=== PATIENT | female | born 1995 | race Caucasian/White ===

== ENCOUNTER 2020-04-22 06:03 | Inpatient (IN) | payer BC, MEDICAID ==
[~2020-04-22] VITALS: Ht 160 cm; Wt 109.1 kg
[2020-04-22] VITALS (19 sets, daily range): BP systolic 100–141; BP diastolic 48–89
[2020-04-22 06:45] LABS: BASOPHILS % (AUTO) 0.7 % (0-1); EOSINOPHILS # (AUTO) 0.1 X10'3 (0-0.9); EOSINOPHILS % (AUTO) 1.5 % (0-6); HEMATOCRIT 38.5 % (35.0-45.0); HEMOGLOBIN 12.5 g/dl (12.0-16.0); LYMPHOCYTES # (AUTO) 1.4 X10'3 (1.1-4.8); LYMPHOCYTES % (AUTO) 31.1 % (21-51); MEAN CORPUSCULAR HEMOGLOBIN 25.6 PG (27.0-31.0); MEAN CORPUSCULAR HGB CONC 32.5 g/dL (33.0-36.5); MEAN CORPUSCULAR VOLUME 78.9 FL (78-98); MEAN PLATELET VOLUME 8.3 FL (7.4-10.4); MONOCYTES # (AUTO) 0.3 X10'3 (0-0.9); MONOCYTES % (AUTO) 6.7 % (2-12); NEUTROPHILS # (AUTO) 2.8 X10'3 (1.8-7.7); PLATELET COUNT 451 X10'3 (140-440); RED BLOOD COUNT 4.88 X10'6 (4.20-5.60); RED CELL DISTRIBUTION WIDTH 16.5 % (11.5-14.5); WHITE BLOOD COUNT 4.6 X10'3 (4.5-11.0)
[2020-04-22 06:59] LABS: ALANINE AMINOTRANSFERASE 557 U/L (12-78); ALBUMIN 3.7 G/DL (3.4-5.0); ALBUMIN/GLOBULIN RATIO 0.8 (1.1-1.5); ALKALINE PHOSPHATASE 303 IU/L (46-116); ANION GAP 10 (8-16); ASPARTATE AMINO TRANSFERASE 316 U/L (10-37); BILIRUBIN,TOTAL 3.3 MG/DL (0.1-1.0); BLOOD UREA NITROGEN 5 MG/DL (7-18); BUN/CREATININE RATIO 7.7 (6.6-38.0); CALCIUM 9.1 MG/DL (8.5-10.1); CHLORIDE 105 MMOL/L (99-107); CREATININE 0.65 MG/DL (0.40-0.90); GLUCOSE 97 MG/DL (70-104); LIPASE 80 U/L (73-393); PARTIAL THROMBOPLASTIN TIME 26 SECONDS (22-32); POTASSIUM 3.8 MMOL/L (3.5-5.1); SODIUM 141 MMOL/L (135-145); TOTAL CARBON DIOXIDE 25.8 MMOL/L (24-32); TOTAL PROTEIN 8.2 G/DL (6.4-8.2); eGFR > 90 ML/MIN
[2020-04-22] MEDS ORDERED: HYDROcodone/acetaminophen 10/325mg tab PO PRN (07:25)
[2020-04-22] MEDS ORDERED: acetaminophen 325mg tablet PO PRN ×2 (07:25)
[2020-04-22] MEDS ORDERED: ondansetron/PF 4mg/2ml inj IV PRN (07:25)
[2020-04-22] MEDS ORDERED: HYDROcodone/acetaminophen 5mg/325mg tablet PO PRN (07:25)
[2020-04-22] MEDS ORDERED: magnesium hydroxide 30ml (MOM) UD suspension PO PRN (07:25)
[2020-04-22] MEDS ORDERED: morphine 2 MG/ML inj. syringe IV PRN ×2 (07:25)
[2020-04-22] MEDS ORDERED: mag hydrox/Alum hydrox/simeth 30ml oral suspension PO PRN (07:25)
[2020-04-22] MEDS ORDERED: NO HOME MEDS (07:28)
[2020-04-22] MEDS ORDERED: piperacillin/tazo 4.5gm/100ml 100 ML IV SCH (08:00)
[2020-04-22] MEDS: normal saline 1000ml 1,000 ML IV SCH ×3 (10:03→21:26)
[2020-04-22] MEDS ORDERED: fentaNYL/PF 50MCG/1 ML 2ML syringe ONE (14:04)
[2020-04-22] MEDS ORDERED: LIDOcaine Viscous 15ml cup ONE (14:04)
[2020-04-22] MEDS ORDERED: proCHLORperazine 10 MG/2 ml inj ONE (14:04)
[2020-04-22] MEDS ORDERED: MIDAZolam 5mg/5ml vial ONE (14:04)
[2020-04-22] MEDS ORDERED: diphenhydrAMINE 50 mg/ml inj ONE (14:04)
[2020-04-22] MEDS ORDERED: iohexol 300 MG/1 ML 50ml polymer ONE (14:05)
[2020-04-22] MEDS ORDERED: glucagon, human recombinant 1mg kit ONE (14:05)
--- NOTE | 2020-04-22 18:06 | NUR ---
Problems reprioritized. Patient report given, questions answered & plan of care reviewed with Jennifer ANGELO.
--- NOTE | 2020-04-22 18:09 | NUR ---
Patient in room [facility]TH[facility] 4012. I have received report from GI Hernandez and had the opportunity to ask questions and assume patient care. Addendum: 04/22/20 at 1809 by Jennifer Seymour RN Amended: Links added. Addendum: 04/22/20 at 1832 by Jennifer Seymour RN patient still in the OR for ERCP
--- NOTE | 2020-04-22 18:59 | NUR ---
pt arrived after ercp in no distress, stone was removed
[2020-04-23 02:00] VITALS: BP 111/66
[2020-04-23 06:01] LABS: BASOPHILS % (AUTO) 0.7 % (0-1); EOSINOPHILS # (AUTO) 0.1 X10'3 (0-0.9); EOSINOPHILS % (AUTO) 1.6 % (0-6); HEMATOCRIT 37.1 % (35.0-45.0); HEMOGLOBIN 12.1 g/dl (12.0-16.0); LYMPHOCYTES # (AUTO) 1.9 X10'3 (1.1-4.8); LYMPHOCYTES % (AUTO) 32.1 % (21-51); MEAN CORPUSCULAR HGB CONC 32.7 g/dL (33.0-36.5); MEAN CORPUSCULAR VOLUME 79.6 FL (78-98); MEAN PLATELET VOLUME 8.4 FL (7.4-10.4); MONOCYTES # (AUTO) 0.3 X10'3 (0-0.9); MONOCYTES % (AUTO) 5.8 % (2-12); NEUTROPHILS # (AUTO) 3.5 X10'3 (1.8-7.7); NEUTROPHILS % (AUTO) 59.8 % (42-75); PLATELET COUNT 392 X10'3 (140-440); RED BLOOD COUNT 4.67 X10'6 (4.20-5.60); RED CELL DISTRIBUTION WIDTH 16.5 % (11.5-14.5); WHITE BLOOD COUNT 5.9 X10'3 (4.5-11.0)
--- NOTE | 2020-04-23 06:20 | NUR ---
Patient in room [facility]TH[facility] 4012. I have received report from Grecia Soliz RN and had the opportunity to ask questions and assume patient care.
[2020-04-23 06:26] LABS: ALANINE AMINOTRANSFERASE 415 U/L (12-78); ALBUMIN/GLOBULIN RATIO 0.8 (1.1-1.5); ALKALINE PHOSPHATASE 252 IU/L (46-116); ANION GAP 11 (8-16); ASPARTATE AMINO TRANSFERASE 177 U/L (10-37); BILIRUBIN,TOTAL 1.1 MG/DL (0.1-1.0); BLOOD UREA NITROGEN 5 MG/DL (7-18); BUN/CREATININE RATIO 9.3 (6.6-38.0); CALCIUM 8.5 MG/DL (8.5-10.1); CHLORIDE 105 MMOL/L (99-107); CREATININE 0.54 MG/DL (0.40-0.90); GLUCOSE 75 MG/DL (70-104); POTASSIUM 4.3 MMOL/L (3.5-5.1); SODIUM 140 MMOL/L (135-145); TOTAL CARBON DIOXIDE 23.6 MMOL/L (24-32); eGFR > 90 ML/MIN
--- NOTE | 2020-04-23 06:40 | NUR ---
Problems reprioritized. Patient report given, questions answered & plan of care reviewed with GI Og.
[2020-04-23 06:54] VITALS: BP 122/72
--- NOTE | 2020-04-23 09:15 | NUR ---
DC inst provided to pt. IV DC'd, tip intact. All belongings sent w/pt. Pt ambulated to front lobby.
== END 2020-04-23 09:10 | disposition home or self-care (01) | DRG 445 ==
LOC: ER 06:07 → ED HOLD 07:24 → ORTHO 4S 08:10
PROVIDERS: ADMIT Internal Medicine; ATTEND Internal Medicine
PROC: 0FC98ZZ Extirpation of Matter from Common Bile Duct, Via Natural or Artificial Opening Endoscopic (ICD-10-PCS; principal; 2020-04-22)
PROC: BF101ZZ Fluoroscopy of Bile Ducts using Low Osmolar Contrast (ICD-10-PCS; 2020-04-22)
DX: K80.70 Calculus of gallbladder and bile duct without cholecystitis without obstruction (principal); Z68.41 Body mass index [BMI] 40.0-44.9, adult; E66.01 Morbid (severe) obesity due to excess calories; Z98.891 History of uterine scar from previous surgery
CPT/HCPCS: 36415; 43262; 43264; 80053; 83690; 85025; 85610; 85730; 87081; 99152; 99153; 99285; A4620; C1769; G0378; J0780; J1200; J1610; J2250; J3010; J7030; J7040; Q9967